=== PATIENT | female | born 1955 | race Caucasian/White ===

== ENCOUNTER → 2016-07-10 | Day surgery (SDC) | payer BC ==
[~2016-07-10] MED LIST: ALEN70TA5 PO; ASPI81TA50 PO; ATOR10TA60 PO; CA C1TAB28 PO; CALC-274 PO; CALC625T12 PO; DOCU-27 PO; FENTANYL PF 100 MCG/2 ML VIAL. IV PRN; HYDROMORPHONE 2 MG/ML VIAL. IV PRN; IV RINGERS,LACTATED 1000ML 1,000 ML IV SCH; LACT1CAP29 PO; LACT1CAP8 PO; LIDOCAINE 1% 1 ML SYRINGE. ID PRN; LIDOCAINE 2% PF Vial for OR 5 ML VIAL. ONE; MORPHINE SULFATE 2 MG/ML DISP.SYRIN. IV PRN; MULT-245 PO; OMEG1CAP65 PO; OMEP40CA5 PO; ONDANSETRON PF 4 MG/2 ML VIAL. IV PRN; OXYC-323 PO; PROCHLORPERAZINE 10 MG/2 ML VIAL. IV PRN; PROPOFOL 20 ML IV ONE; RANI150C PO
[2016-07-10 10:03] VITALS: BP 118/76
--- NOTE | 2016-07-11 14:50 | PATHOLOGY ---
PATHOLOGY REPORT * * * * * * * * FINAL DIAGNOSIS: A. Small bowel biopsy: - No significant pathologic abnormalities. B. Gastric biopsy, antrum: - Focal mild reactive gastropathy with mild chronic inflammation. C. Esophageal biopsy, distal esophagus: - Segments of hyperplastic squamous esophageal mucosa, esophagogastric mucosa, and gastric mucosa showing focal mild to moderate chronic inflammation, consistent with reflux esophagitis. COMMENT: Sections of the small bowel biopsy reveal segments of small intestine and duodenal mucosa. Where best oriented, the mucosal villi appear normal. There are no sprue-like changes or significant inflammatory changes. Sections of the gastric biopsy reveal gastric antral and antral/body transition mucosa showing congestion, focal foveolar hyperplasia, and focal mild chronic inflammation. There are a few admixed eosinophils. An immunoperoxidase stain for Helicobacter is obtained. No Helicobacter organisms are identified. Sections of the distal esophageal biopsy reveal segments of hyperplastic squamous esophageal mucosa, esophagogastric mucosa, and gastric mucosa showing focal mild to moderate chronic inflammation. The findings are consistent with reflux esophagitis. There is no evidence of Oakley's change, dysplasia, or malignancy. (JPM:mgbranden; d/t: 07/11/16) Special Stain: Helicobacter pylori (B1) REPORT ELECTRONICALLY SIGNED BY: Herman Reeves M.D. DATE/TIME: 07/11/2016 14:49 * * * * * * * * GROSS PATHOLOGY: A. Received in formalin labeled "Hal Nakia, small bowel," are four segments of spencer soft tissue measuring 1.0 x 0.7 x 0.1 cm in aggregate dimensions and ranging from 0.3 to 0.7 cm in maximum dimension. The specimen is submitted entirely in cassette A1. B. Received in formalin labeled "Hal Nakia, gastric antrum," are two segments of spencer soft tissue measuring 0.6 x 0.4 x 0.1 cm in aggregate dimensions and ranging from 0.3 to 0.4 cm in maximum dimension. The specimen is submitted entirely in cassette B1. C. Received in formalin labeled "Hal Nakia, distal esophagus," are four segments of spencer soft tissue measuring 1.0 x 0.8 x 0.1 cm in aggregate dimensions and ranging from 0.3 to 0.8 cm in maximum dimension. The specimen is submitted entirely in cassette C1. (CAA; 07/10/2016) INITIAL CPT CODE(S): A; 72322 B; 34443, 83789 C; 71430 Professional services performed by [facility] at [address] [address] Technical services performed by [facility] at [address] [place] [address], [place] [address]. SPECIMEN(S) RECEIVED: A.Small bowel B.Gastric antrum C.Distal esophagus CLINICAL HISTORY: Epigastric pain PATIENT: NAKIAHAL MORALES BENIGNO /AGE: 308/21/1955 (Age: 60) PATIENT #: [id number] ALT CASE #: SPECIMEN COLLECTION DATE: 07/10/2016 SPECIMEN RECEIVED DATE: 07/10/2016 [facility] - [address] [place] [address] - PHONE: [phone] * * * END OF REPORT * * *
== END ==
LOC: ENDOS 07:57
PROVIDERS: ATTEND Internal Medicine Gastroenterology
DX: K21.0 Gastro-esophageal reflux disease with esophagitis (principal); K29.61 Other gastritis with bleeding; K44.9 Diaphragmatic hernia without obstruction or gangrene; E78.00 Pure hypercholesterolemia, unspecified; K63.5 Polyp of colon; M81.0 Age-related osteoporosis without current pathological fracture; K64.9 Unspecified hemorrhoids; Z90.49 Acquired absence of other specified parts of digestive tract; Z80.0 Family history of malignant neoplasm of digestive organs; Z72.89 Other problems related to lifestyle; Z79.82 Long term (current) use of aspirin
CPT/HCPCS: 43239; J2704; 88305; 88342; G0641

== ENCOUNTER → 2021-03-11 | Outpatient (CLI) | payer BC ==
[2016-07-10 10:03] VITALS: BP 118/76
[~2021-03-11] MED LIST changes: -ALEN70TA5 PO; +ALEN70TA71 PO; +DOCU-109 PO; -DOCU-27 PO; -FENTANYL PF 100 MCG/2 ML VIAL. IV PRN; -HYDROMORPHONE 2 MG/ML VIAL. IV PRN; -IV RINGERS,LACTATED 1000ML 1,000 ML IV SCH; -LACT1CAP29 PO; +LACT1CAP37 PO; -LIDOCAINE 1% 1 ML SYRINGE. ID PRN; -LIDOCAINE 2% PF Vial for OR 5 ML VIAL. ONE; -MORPHINE SULFATE 2 MG/ML DISP.SYRIN. IV PRN; -OMEP40CA5 PO; +OMEP40CA7 PO; -ONDANSETRON PF 4 MG/2 ML VIAL. IV PRN; -OXYC-323 PO; +OXYC1TAB15 PO; -PROCHLORPERAZINE 10 MG/2 ML VIAL. IV PRN; -PROPOFOL 20 ML IV ONE
--- NOTE | 2021-03-11 12:51 | RAD ---
Gastric Emptying Study 03/11/2021 Indication: Belching, abdominal pain. Symptoms x3 months Procedure: Anterior and posterior projection static images are obtained over the stomach following or al administration of 2 mCi of 99 M technetium sulfur colloid in a solid meal. Time points include an immediate baseline, and 1, 2, 3, and 4 hours post ingestion. Findings: There is progressive emptying of the stomach on sequential images. Percentage retention at... One hour is 69% (normal 34.8-91%). Two hours 50% (normal 2.7-60%). Three hours 16% (normal 0.5-28%). Four hours for% (normal 0-10%). Impression: Normal 4 hour protocol gastric emptying study. Consensus Recommendations for Gastric Emptying Scintigraphy: A Joint Report of the [place] [employer] Society and the Society of Nuclear Medicine: J. Nucl. Med. Technol. August 14 vol. 36 no. 1 44-54 Grading for severity of delayed GE based on the 4-h value: grade 1 (mild): 11?20% retention at 4 h grade 2 (moderate): 21?35% retention at 4 h grade 3 (severe): 36?50% retention at 4 h grade 4 (very severe): >50% retention at 4 h. Electronically signed by: Curtis Woods MD (03/11/2021 12:48 PM) [id number]
== END ==
LOC: NM 10:11
PROVIDERS: ATTEND Internal Medicine Gastroenterology
DX: R10.9 Unspecified abdominal pain (principal); R14.2 Eructation
CPT/HCPCS: 78264; A9541

== ENCOUNTER → 2021-05-08 | Outpatient (CLI) | payer BC ==
[2016-07-10 10:03] VITALS: BP 118/76
[~2021-05-08] MED LIST changes: +BARIUM SULFATE 60% 355 ML SUSP PO ONE
--- NOTE | 2021-05-08 09:05 | RAD ---
Duplex ultrasound evaluation of mesenteric arteries 05/08/2021 INDICATION: Periumbilical pain COMPARISON STUDY: None Discussion: Ultrasound evaluation of the mesenteric arteries was performed. Static images are submitt ed to PACS. Visualized abdominal aorta is unremarkable in appearance. On color Doppler imaging the ce liac artery is grossly patent. Peak systolic velocities measuring 196 cm/s. On color Doppler imaging the SMA is grossly patent with peak systolic velocity 1 64 cm/s. Visualized hepatic arteries patent. IMPRESSION: No sonographic evidence of hemodynamically significant stenosis involving the celiac lilibeth ry or SMA Electronically signed by: Curtis Woods MD (05/08/2021 9:02 AM) [id number]
--- NOTE | 2021-05-08 10:09 | RAD ---
EXAM: SMALL BOWEL FOLLOW-THROUGH. HISTORY: Periumbilical abdominal pain. COMPARISON: None. FINDINGS: A report checker image was obtained. Barium contrast material was administered orally and followed i n its course through the stomach, small bowel and proximal colon with fluoroscopy and plain radiograp hs. 5 fluoroscopic images were obtained. Fluoroscopy time 30 seconds. The report checker image demonstrates a nonobstructive bowel gas pattern. Stool throughout the colon is consis tent with constipation. Cholecystectomy clips are noted. There are no distended small bowel loops. No strictures are seen. The small bowel fold pattern is unr emarkable. Transit time was rapid at 15 minutes (normal <2 hours.) IMPRESSION: 1. Unremarkable small bowel series. Rapid small bowel transit at 15 minutes. Electronically signed by: Gardenia Ashley MD (05/08/2021 10:06 AM) [id number]
== END ==
LOC: US 10:04
PROVIDERS: ATTEND Internal Medicine Gastroenterology
DX: R10.33 Periumbilical pain (principal); K55.059 Acute (reversible) ischemia of intestine, part and extent unspecified
CPT/HCPCS: 74250; 93976